=== PATIENT | female | born 1965 | race Hispanic/Latino ===

== ENCOUNTER 2021-01-27 07:54 | Day surgery (SDC) | payer OTHER ==
[2021-01-25 12:48] LABS: BASOPHILS % (AUTO) 0.3 % (0.0-5.0); EOSINOPHILS % (AUTO) 0.4 % (0.0-8.0); HEMATOCRIT 42.4 % (36-48); LYMPHOCYTES % (AUTO) 28.2 % (21.0-51.0); MEAN CORPUSCULAR HEMOGLOBIN 28.5 pg (27.0-33.0); MEAN CORPUSCULAR HGB CONC 33.7 g/dL (32.0-36.0); MEAN CORPUSCULAR VOLUME 84.6 fL (79-99); MONOCYTES % (AUTO) 5.6 % (3.0-13.0); NEUTROPHILS % (AUTO) 65.1 % (40.0-77.0); PLATELET COUNT (AUTO) 243 K/uL (130-400); RED BLOOD CELL COUNT(AUTO) 5.01 MIL/uL (4.00-5.50); RED CELL DISTRIBUTION WIDTH 12.7 % (11.0-15.5); WHITE BLOOD COUNT (AUTO) 7.9 K/uL (4.8-10.8)
[2021-01-25 12:59] LABS: INR 0.99 (0.85-1.15); PROTHROMBIN TIME 10.8 SEC (9.6-11.6)
[2021-01-25 13:00] LABS: PARTIAL THROMBOPLASTIN TIME 28.9 SEC (26.3-35.5)
[2021-01-25 13:02] LABS: CREATININE 0.8 mg/dL (0.5-1.5); POTASSIUM 4.5 mmol/L (3.5-5.1)
[2021-01-27] VITALS (19 sets, daily range): BP systolic 131–189; BP diastolic 71–98
[~2021-01-27] VITALS: Ht 165.1 cm; Wt 97.8 kg
[~2021-01-27 07:54] MED LIST: AMLO-360 PO; MAGN500C15 PO; POTA99TA21 PO; vitamin c PO; vitamin d3 PO
[2021-01-27] MEDS ORDERED: SODIUM BICARB 50MEQ 50ML VIAL 50 ML ONE (08:06)
[2021-01-27] MEDS ORDERED: LACTATED RINGERS 1000ML 1,000 ML IV ONE (08:26)
[2021-01-27] MEDS ORDERED: LIDOCAINE PF 100MG/5ML (2%) SYRINGE 5ML ONE ×2 (12:55→12:56)
[2021-01-27] MEDS ORDERED: SUCCINYLCHOLINE 200MG/10ML SYR ONE (12:55)
[2021-01-27] MEDS ORDERED: DEXAMETHASONE SOD PHOSPHATE 10MG/ML 1ML VIAL ONE (12:55)
[2021-01-27] MEDS ORDERED: MIDAZOLAM HCL 1 MG/ML 2ML VIAL ONE (12:56)
[2021-01-27] MEDS ORDERED: PROPOFOL 10 MG/ML 20ML VIAL IV ONE (12:56)
[2021-01-27] MEDS ORDERED: NEOSTIGMINE 5MG/5ML SYR IV ONE (12:56)
[2021-01-27] MEDS ORDERED: ONDANSETRON 4MG INJ ONE (12:56)
[2021-01-27] MEDS ORDERED: ROCURONIUM 10MG/1ML SYR 10 MG/ML ML ONE (12:56)
[2021-01-27] MEDS ORDERED: GLYCOPYRROLATE 1 MG/5 ML SYRINGE ONE (12:56)
[2021-01-27] MEDS ORDERED: FENTANYL CITRATE PF 50 MCG/1 ML 2ML VIAL ONE (12:56)
[2021-01-27] MEDS ORDERED: ACET1TAB25 PO (13:03)
[2021-01-27] MEDS ORDERED: BUPIVACAINE/PF 0.5% 10ML VIAL ONE (13:10)
[2021-01-27] MEDS ORDERED: MEPERIDINE-PF 25 MG/ML SYG ONE (14:24)
[2021-01-27] MEDS ORDERED: HYDRALAZINE 20MG/ML VIAL ONE (14:27)
== END 2021-01-27 16:20 | disposition home or self-care (01) ==
LOC: DAH 07:54
PROVIDERS: ATTEND Specialist
DX: N62 Hypertrophy of breast (principal); Z20.822 Contact with and (suspected) exposure to COVID-19; E66.01 Morbid (severe) obesity due to excess calories; Z79.01 Long term (current) use of anticoagulants; Z68.37 Body mass index [BMI] 37.0-37.9, adult
CPT/HCPCS: 19281; 19301; 36415; 80048; 85025; 85610; 85730; A4215 ×2; A4221; A4222; A4223; A4663; A4930; A6207; A6260; C1819; C9803; J0330; J0360; J1100; J2001 ×2; J2175; J2250; J2405; J2704; J2710; J3010; J3490 ×3; J7120; U0003